=== PATIENT | male | born 1940 | race Caucasian/White ===

== ENCOUNTER 2018-01-31 14:37 | Emergency (ER) | payer OTHER, BC ==
[2018-01-31 14:55] VITALS: BP 128/83; PULSE 95; TEMP 98; BMI 20.3
--- NOTE | 2018-01-31 15:17 | PDOC ---
History of Present Illness - General Chief Complaint: Wound Stated Complaint: ABSCESS Time Seen by Provider: 01/31/18 15:09 History Source: Patient Exam Limitations: No Limitations - History of Present Illness Initial Comments: 01/31/18 15:15 The patient is a 77M with a PMH of COPD and lung ca who presents to the ER with a worsening abscess. The patient states that he's had a spot on his chest for over 2 years which never bothered him. He states that over the past 1.5-2 weeks , it has gotten larger and more red. He states that he went to an and was given antibiotics as well as having a needle stuck inside of it. He denies any fever, chills, nausea, vomiting, night sweats. Past History - Past Medical History Allergies/Adverse Reactions: Allergies Allergy/AdvReac Type Severity Reaction Status Date / Time azithromycin Allergy Verified 01/31/18 14:47 Home Medications: Ambulatory Orders Cephalexin [Keflex] 500 mg PO BID 01/31/18 Hydrochlorothiazide [Hctz -] 12.5 mg PO DAILY 01/31/18 Ipratropium/Albuterol Sulfate [Combivent Respimat Inhal [place]] 4 gm IH PRN PRN 01/31/18 Sulfamethoxazole/Trimethoprim [Bactrim Ds -] 1 tab PO DAILY 01/31/18 Tiotropium [place] [Spiriva] 1 inh IH DAILY 01/31/18 COPD: No - Suicide/Smoking/Psychosocial Hx Smoking History: Never smoked Have you smoked in the past 12 months: No Information on smoking cessation initiated: No Hx Alcohol Use: No Drug/Substance Use Hx: No Substance Use Type: None Review of Systems - Review of Systems Able to Perform ROS?: Yes Is the patient limited Tajik proficient: No Constitutional: No: Chills, Fever HEENTM: No: Eye Pain, Nose Pain Respiratory: Yes: Shortness of Breath (chronic). No: Cough Cardiac (ROS): No: Chest Pain, Syncope ABD/GI: No: Nausea, Vomiting Integumentary: Yes: Erythema, Lumps *Physical Exam - Vital Signs Last Vital Signs Temp Pulse Resp BP Pulse Ox 98 F 95 H 20 128/83 99 01/31/18 14:38 01/31/18 14:38 01/31/18 14:38 01/31/18 14:38 01/31/18 14:38 - Physical Exam General Appearance: Yes: Nourished, Appropriately Dressed HEENT: positive: Normal Voice, Hearing Grossly Normal Integumentary: positive: Other (1 cm fluctuating mass, erythematous, tender to palpation with .3cm incisions x 2.) Procedures - Incision and Drainage I&D Site: Left: Torso (midline superior part of sternum) Betadine cleansed: No Anesthesia: 1% Lidocaine Blade Size: 11 Attempts: 1 Iodinated Packin/ in Plain Packing: No Complications: none Dressing: Yes (bacitracin placed with sterile gauze) Medical Decision Making - Medical Decision Making 01/31/18 15:46 The patient is a 77M with a PMH of COPD and lung CA who presents with an abscess. My attending I&D the abscess which showed pus. It was not packed but covered with a sterile dressing. I have informed the patient to continue taking his antibiotics and use warm compresses 2-3 x day. Pt agrees. Will f/u with PCP. *DC/Admit/Observation/Transfer Diagnosis at time of Disposition: Abscess of chest wall - Discharge Dispostion Disposition: HOME Condition at time of disposition: Stable Admit: No - Referrals - Patient Instructions Printed Discharge Instructions: DI for Skin Abscess Additional Instructions: Please return to the ER if you have any signs or symptoms of chest pain, shortness of breath, uncontrollable fever, chills, nausea, vomiting, numbness, tingling, or weakness in any part of your body, changes in vision, or slurred speech. Please continue to take your antibiotics. Use hot water and a clean towel over the area 2-3 times per day. Please follow up with your primary care physician in 2-3 days. Please return to the ER if symptoms persist, worsen, or new symptoms arise. - Post Discharge Activity
--- NOTE | 2018-01-31 15:18 | PDOC ---
Attending Attestation - Resident Resident Name: Marquez Holden - ED Attending Attestation I have performed the following: I have examined & evaluated the patient, The case was reviewed & discussed with the resident, I agree w/resident's findings & plan, Exceptions are as noted <Lacey Hall - Last Filed: 01/31/18 15:18> - HPI HPI: 01/31/18 16:38 The patient is a 77 year old male with a significant PMH of COPD, and lung ca who presents to the emergency department with a worsening abscess on his chest wall. The patient reports that he has had this abcess for more than 2 years . He reports that he recently visited the ED and his chest abscess was lanced. The patient reports that his chest abscess has gotten worse over the past two weeks. He reports that his chest abscess has been getting larger and increasing in redness. The patient denies any other complaints. He denies any fever, chills. Vomiting or diarrhea. He denies any shortness of breath, headache and dizziness Allergies: Azithromycin Past surgical history: none reported Social history: No reported - Medical Decision Making 01/31/18 16:39 Documentation prepared by Attila Goodson, acting as medical detailist for Lacey Hall MD. <Attila Goodson - Last Filed: 01/31/18 16:40> Review of Systems - Review of Systems Able to Perform ROS?: Yes Comments:: 01/31/18 16:39 GENERAL/CONSTITUTIONAL: No fever or chills. No weakness. HEAD, EYES, EARS, NOSE AND THROAT: No change in vision. No ear pain or discharge. No sore throat. CARDIOVASCULAR: (+) chest abscess. No chest pain or shortness of breath. RESPIRATORY: No cough, wheezing, or hemoptysis. GASTROINTESTINAL: No nausea, vomiting, diarrhea or constipation. GENITOURINARY: No dysuria, frequency, or change in urination. MUSCULOSKELETAL: No joint or muscle swelling or pain. No neck or back pain. SKIN: No rash NEUROLOGIC: No headache, vertigo, loss of consciousness, or change in strength/ sensation. ENDOCRINE: No increased thirst. No abnormal weight change. HEMATOLOGIC/LYMPHATIC: No anemia, easy bleeding, or history of blood clots. ALLERGIC/IMMUNOLOGIC: No hives or skin allergy. Is the patient limited Hebrew proficient: No <Attila Goodson - Last Filed: 01/31/18 16:40>
== END 2018-01-31 16:02 | disposition home or self-care (01) ==
LOC: FER 14:37
PROC: 0H95XZZ Drainage of Chest Skin, External Approach (ICD-10-PCS; principal; 2018-01-31)
DX: L02.213 Cutaneous abscess of chest wall (principal); J44.9 Chronic obstructive pulmonary disease, unspecified; Z85.118 Personal history of other malignant neoplasm of bronchus and lung
CPT/HCPCS: 10060; 87070; 87205; 99282-25